=== PATIENT | male | born 1965 | race Two or more races ===

== ENCOUNTER 2022-04-28 21:24 | Emergency (ER) | payer OTHER ==
[~2022-04-28] VITALS: Ht 177.8 cm; Wt 81.6 kg
[2022-04-28] MEDS ORDERED: COZAAR100 MG PO (22:31)
[2022-04-29] MEDS ORDERED: CEFADROXIL500 MG PO (00:07)
== END 2022-04-29 00:33 | disposition home or self-care (01) ==
LOC: ER 21:24
DX: S80.852A Superficial foreign body, left lower leg, initial encounter (principal); W45.8XXA Other foreign body or object entering through skin, initial encounter; W22.8XXA Striking against or struck by other objects, initial encounter; Y93.9 Activity, unspecified; Y92.9 Unspecified place or not applicable